=== PATIENT | female | born 1980 | race American Indian/Alaskan Native ===

== ENCOUNTER 2019-10-20 19:16 | Inpatient (IN) | payer SELFPAY ==
[~2019-10-20] VITALS: Ht 172.7 cm; Wt 107.1 kg
[2019-10-20] MEDS ORDERED: PANTOPRAZOLE 40 MG 10ML VIAL IV STA (19:34)
[2019-10-20] MEDS ORDERED: ONDANSETRON HCL INJ 2MG/ML 2ML 2 MG/ML VIAL IV STA (19:41)
[2019-10-20] MEDS ORDERED: MORPHINE SULFATE 2 MG/ML SYR 1ML IV STA (19:41)
[2019-10-20] MEDS ORDERED: ASPIRIN 81 MG CHEW TAB PO ONE (19:45)
[2019-10-20] MEDS ORDERED: DICYCLOMINE HCL 20 MG/2 ML VIAL IM ONE (19:45)
[2019-10-20 19:59] LABS: CLARITY,URINE CLEAR (CLEAR); COLOR,URINE YELLOW (YELLOW)
[2019-10-20 20:00] LABS: BILIRUBIN,URINE NEGATIVE (NEGATIVE); KETONES,URINE NEGATIVE (NEGATIVE); LEUKOCYTE ESTERASE ,URINE NEGATIVE (NEGATIVE); NITRITE,URINE NEGATIVE (NEGATIVE); PROTEIN,URINE DIPSTICK NEGATIVE (NEGATIVE); URINE UROBILINOGEN 1 mg/dL (0.2 - 1)
--- NOTE | 2019-10-20 20:05 | Diagnostic Imaging Report ---
EXAMINATION: CHEST SINGLE (PORTABLE) INDICATION: Shortness of breath. COMPARISON: None FINDINGS: TUBES and LINES: None. LUNGS: Lungs are well inflated. There are bibasilar atelectasis. There is no evidence of pneumonia or pulmonary edema. PLEURA: No pleural effusion or pneumothorax. HEART AND MEDIASTINUM: Cardiac size is mildly enlarged. BONES AND SOFT TISSUES: No acute osseous lesion. Soft tissues are unremarkable. UPPER ABDOMEN: No free air under the diaphragm. IMPRESSION: No acute thoracic abnormality. Signed by: Dr. Gatito Brennan M.D. on 10/20/2019 8:03 PM
[2019-10-20 20:07] LABS: BASOPHILS # (AUTO) 0.1 (0.0-0.1); BASOPHILS % 0.5 % (0.0-1.0); EOSINOPHILS # (AUTO) 0.1 (0.0-0.4); EOSINOPHILS % 1.1 % (0.0-6.0); HEMATOCRIT 41.4 % (34.2-44.1); LYMPHOCYTES # (AUTO) 3.5 (1.0-3.2); LYMPHOCYTES % 36.2 % (18.0-39.1); MEAN CORPUSCULAR HEMOGLOBIN 28.5 pg (28-32); MEAN CORPUSCULAR HGB CONC 33.8 g/dL (31-35); MEAN CORPUSCULAR VOLUME 84.1 fL (81-99); MONOCYTES # (AUTO) 0.7 (0.2-0.8); MONOCYTES % 7.6 % (4.4-11.3); NEUTROPHILS # (AUTO) 5.2 (2.1-6.9); NEUTROPHILS % 54.4 % (38.7-80.0); PLATELET COUNT 385 x10e3/uL (140-360); RED BLOOD COUNT 4.92 x10e6/uL (3.6-5.1); RED CELL DISTRIBUTION WIDTH 14.3 % (11.7-14.4)
[2019-10-20 20:11] LABS: AMORPHOUS SEDIMENT,URINE MODERATE (FEW); BACTERIA,URINE FEW /HPF; EPITHELIAL CELLS,URINE FEW /LPF; PREGNANCY TEST, URINE NEGATIVE (NEGATIVE); WBC,URINE (MAN) 0-5 /HPF (0-5)
[2019-10-20 20:51] LABS: ALANINE AMINOTRANSFERASE 9 IU/L (0-55); ALBUMIN 4.2 g/dL (3.5-5.0); ALBUMIN/GLOBULIN RATIO 1.2 (0.8-2.0); ALKALINE PHOSPHATASE 64 IU/L (40-150); ANION GAP 14.8 mmol/L (8-16); BLOOD UREA NITROGEN 14 mg/dL (7-26); BUN/CREATININE RATIO 19 (6-25); CARBON DIOXIDE 26 mmol/L (22-29); CHLORIDE 104 mmol/L (98-107); CREATINE KINASE 58 IU/L (29-168); CREATININE, SERUM 0.74 mg/dL (0.57-1.11); EST GLOMERULAR FILTRATION RATE > 60 ML/MIN (60-); GLUCOSE 97 mg/dL (74-118); POTASSIUM 3.8 mmol/L (3.5-5.1); SODIUM 141 mmol/L (136-145)
[2019-10-20 20:52] LABS: AMYLASE 38 U/L (25-125); LIPASE 20 U/L (8-78)
--- NOTE | 2019-10-20 20:56 | Diagnostic Imaging Report ---
EXAM: Right Upper Quadrant Ultrasound INDICATION: Right upper quadrant pain. COMPARISON: None. TECHNIQUE: Transverse and longitudinal images of the right upper abdomen were obtained. FINDINGS: Liver: Size: 15.3 cm in the right midclavicular line, normal Appearance: Normal echogenicity, smooth contour Mass: No focal masses Gallbladder: Stones/Sludge: Multiple shadowing calculi within the gallbladder. Wall: 0.4 cm, mildly thickened. Appearance: No wall thickening, pericholecystic fluid or hydrops. Sonographic Maria's Sign: Negative Bile Ducts: Intrahepatic Ducts: No dilatation Extrahepatic Ducts: Common bile duct measures 0.3 cm, no dilatation Pancreas: Visualized portions of the pancreatic head, neck and proximal body are normal. Kidneys: Length: Right 11.8 cm Echogenicity: Normal Collecting System: No hydronephrosis Stone: None Cyst/Mass: None Vessels: Aorta: Visualized portions are normal. Proximal aorta not visualized shadowing from overlying bowel gas. Inferior Vena Cava: Visualized portions are normal Main Portal Vein: 0.7 cm, normal size with hepatopetal flow. Free Fluid: No ascites or pleural effusion IMPRESSION: Cholelithiasis. Mild gallbladder wall thickening is a nonspecific finding, however, may reflect chronic calculus cholecystitis. Signed by: Dr. Gatito Brennan M.D. on 10/20/2019 8:53 PM
[2019-10-20] MEDS ORDERED: DIPHENHYDRAMINE HCL INJ 50 MG/ML VIAL IV ONE (21:00)
[2019-10-20] MEDS ORDERED: SODIUM CHLORIDE 0.9% 100 ML ONE (22:30)
[2019-10-20] MEDS ORDERED: IOPAMIDOL 370 MG/ML 200 ML INFUS..BTL INJ ONE (22:30)
--- NOTE | 2019-10-20 22:47 | Diagnostic Imaging Report ---
EXAM: CTA of the Thoracic Aorta WITH and WITHOUT Contrast INDICATION: Pain between shoulder blades, chest pain, back pain COMPARISON: None. TECHNIQUE: Multi-detector CT technology was employed. CTA axial imaging of the chest was performed after the administration of IV contrast. IV CONTRAST: 100 mL Isovue 370 ORAL CONTRAST: None COMPLICATIONS: None RADIATION DOSE: Total DLP: 1182 mGy*cm Estimated effective dose: (DLP x 0.015 x size factor) mSv CTDIvol has been reviewed. It is below the limits set by the Radiation Protocol Committee (RPC). For optimization of anatomic evaluation, multiplanar reconstruction, maximum intensity projections, and advanced 3-D off-line postprocessing were performed on a dedicated stand-alone workstation. FINDINGS: Potential study limitations: None. LINES/ TUBES: None. VASCULAR WITH ADVANCED 3-D OFF-LINE POSTPROCESSING: Aortic valve morphology is trileaflet and contains no calcifications. The thoracic aorta is normal in course, caliber, and contour. There is no acute aortic pathology, such as dissection, intramural hematoma, or contained rupture. Aortic plaques: None. The left vertebral artery arises directly from the aortic arch. All of the arch branch vessels appear widely patent in their proximal portions. LUNGS AND AIRWAYS: Lungs are clear. Airways are patent. PLEURA: The pleural spaces are clear.. HEART AND MEDIASTINUM: An 2.3 cm right thyroid lobe hypodense nodule. No mediastinal, hilar or axillary lymphadenopathy. The main pulmonary artery is normal in size. The cardiac chambers are normal in size. The coronary arteries have normal origins and courses. There are no distinct coronary calcifications identified, though this study was not optimized for coronary artery evaluation. There is no pericardial effusion. Upper ABDOMEN:Gallstones in the gallbladder lumen without CT evidence of cholecystitis. Punctate nonobstructive right renal calculus. A 2.9 cm benign left adrenal myelolipoma. BONES: Degenerative changes in the spine. IMPRESSION: Normal thoracic aorta. There is no acute aortic pathology. Cholelithiasis with mildly thickened gallbladder which can be seen with cholecystitis. An indeterminate 2.3 cm right thyroid lobe hypodense nodule. Recommend nonemergent thyroid ultrasound for further evaluation. Signed by: Cristofer Durant DO on 10/20/2019 10:44 PM
[2019-10-20] MEDS ORDERED: HYDROMORPHONE 1MG/1ML INJ IV STA (22:58)
[2019-10-20] MEDS ORDERED: HYDRALAZINE HCL 20 MG/ML VIAL IV PRN (23:30)
[2019-10-20] MEDS ORDERED: CEFEPIME 2 GM/NS 0.9% 100 ML 100 ML IV SCH (23:30)
[2019-10-20] MEDS ORDERED: PIPER-TAZ 3.375 GM / NS 50ML IV SCH (23:30)
[2019-10-20] MEDS ORDERED: DEXTROSE 50% SYRINGE 50 ML IV PRN (23:45)
[2019-10-21] VITALS (8 sets, daily range): BP systolic 118–160; BP diastolic 59–86
--- OUTSIDE RECORDS SUMMARY | 2019-10-21 | XMS REPORT ---
Author Author [facility] Address Unknown Phone Unavailable Care Team Providers Care System Support Analyst Name Role Phone Barron WILKINS Unavailable Unavailable Problems This patient has no known problems. Allergies, Adverse Reactions, Alerts This patient has no known allergies or adverse reactions. Medications This patient has no known medications. Results Test Description Test Time Test Comments Text Results Atomic Results Result Comments CTA CHEST 2019-10-20 22:35:00 [place] [address] Patient Name: VIKRAM SEBASTIAN MR #: [id number] : 1980 Age/Sex: 39/F Req #: [id number] Adm Physician: Ordered by: ELDON WILKINS MD Report #: [id number] Location: ER Room/Bed: Procedure: [id number] CT/CTA CHEST Exam Date: Exam Time: REPORT STATUS: Signed EXAM: CTA of the Thoracic Aorta WITH and WITHOUT Contrast INDICATION: Pain between shoulder blades, chest pain, back pain COMPARISON: None. TECHNIQUE: Multi-detector CT technology was employed. CTA axial imaging of the chest was performed after the administration of IV contrast. IV CONTRAST: 100 mL Isovue 370 ORAL CONTRAST: None COMPLICATIONS: None RADIATION DOSE: Total DLP: 1182 mGy*cm Estimated effective dose: (DLP x 0.015 x size factor) mSv CTDIvol has been reviewed. It is below the limits set by the Radiation Protocol Committee (RPC). For optimization of anatomic evaluation, multiplanar reconstruction, maximum intensity projections, and advanced 3-D off-line postprocessing were performed on a dedicated stand-alone workstation. FINDINGS: Potential study limitations: None. LINES/ TUBES: None. VASCULAR WITH ADVANCED 3-D OFF-LINE POSTPROCESSING: Aortic valve morphology is trileaflet and contains no calcifications. The thoracic aorta is normal in course, caliber, and contour. There is no acute aortic pathology, such as dissection, intramural hematoma, or contained rupture. Aortic plaques: None. The left vertebral artery arises directly from the aortic arch. All of the arch branch vessels appear widely patent in their proximal portions. LUNGS AND AIRWAYS: Lungs are clear. Airways are patent. PLEURA: The pleural spaces are clear.. HEART AND MEDIASTINUM: An 2.3 cm right thyroid lobe hypodense nodule. No mediastinal, hilar or axillary lymphadenopathy. The main pulmonary artery is normal in size. The cardiac chambers are normal in size. The coronary arteries have normal origins and courses. There are no distinct coronary calcifications identified, though this study was not optimized for coronary artery evaluation. There is no pericardial effusion. Upper ABDOMEN:Gallstones in the gallbladder lumen without CT evidence of cholecystitis. Punctate nonobstructive right renal calculus. A 2.9 cm benign left adrenal myelolipoma. BONES: Degenerative changes in the spine. IMPRESSION: Normal thoracic aorta. There is no acute aortic pathology. Cholelithiasis with mildly thickened gallbladder which can be seen with cholecystitis. An indeterminate 2.3 cm right thyroid lobe hypodense nodule. Recommend nonemergent thyroid ultrasound for further evaluation. Signed by: Cristofer Durant DO on 10/20/2019 10:44 PM Dictated By: CRISTOFER DURANT DO 43 Transcribed By: IMAN on 10/20/192243 COPY TO: ELDON WILKINS MD GALLBLADDER 2019-10-20 20:50:00 [place] [id number] Patient Name: VIKRAM SEBASTIAN MR #: [id number] : 1980 Age/Sex: 39/F Req #: [id number] Adm Physician: Ordered by: ELDON WILKINS MD Report #: [id number] Location: ER Room/Bed: Procedure: [id number] US/US GALLBLADDER Exam Date: 10/20/19 Exam Time: 2020 REPORT STATUS: Signed EXAM: Right Upper Quadrant Ultrasound INDICATION: Right upper quadrant pain. COMPARISON: None. TECHNIQUE: Transverse and longitudinal images of the right upper abdomen were obtained. FINDINGS: Liver: Size: 15.3 cm in the right midclavicular line, normal Appearance: Normal echogenicity, smooth contour Mass: No focal masses Gallbladder: Stones/Sludge: Multiple shadowing calculi within the gallbladder. Wall: 0.4 cm, mildly thickened. Appearance: No wall thickening, pericholecystic fluid or hydrops. Sonographic Maria's Sign: Negative Bile Ducts: Intrahepatic Ducts: No dilatation Extrahepatic Ducts: Common bile duct measures 0.3 cm, no dilatation Pancreas: Visualized portions of the pancreatic head, neck and proximal body are normal. Kidneys: Length: Right 11.8 cm Echogenicity: Normal Collecting System: No hydronephrosis Stone: None Cyst/Mass: None Vessels: Aorta: Visualized portions are normal. Proximal aorta not visualized shadowing from overlying bowel gas. Inferior Vena Cava: Visualized portions are normal Main Portal Vein: 0.7 cm, normal size with hepatopetal flow. Free Fluid: No ascites or pleural effusion IMPRESSION: Cholelithiasis. Mild gallbladder wall thickening is a nonspecific finding, however, may reflect chronic calculus cholecystitis. Signed by: Dr. Gatito Franco M.D. on 10/20/2019 8:53 PM Dictated By: CEDRIC FRANCO MD, MD 52 Transcribed By: IMAN on 10/20/192052 COPY TO: ELDON WILKINS MD CHEST SINGLE (PORTABLE) 2019-10-20 20:02:00 [place] [address] Patient Name: VIKRAM SEBASTIAN MR #: [id number] : 1980 Age/Sex: 39/F Req #: [id number] Adm Physician: Ordered by: ELDON WILKINS MD Report #: [id number] Location: ER Room/Bed: Procedure: [id number] DX/CHEST SINGLE (PORTABLE) Exam Date: 10/20/19 Exam Time: 1949 REPORT STATUS: Signed EXAMINATION: CHEST SINGLE (PORTABLE) INDICATION: Shortness of breath. COMPARISON: None FINDINGS: TUBES and LINES: None. LUNGS: Lungs are well inflated. There are bibasilar atelectasis. There is no evidence of pneumonia or pulmonary edema. PLEURA: No pleural effusion or pneumothorax. HEART AND MEDIASTINUM: Cardiac size is mildly enlarged. BONES AND SOFT TISSUES: No acute osseous lesion. Soft tissues are unremarkable. UPPER ABDOMEN: No free air under the diaphragm. IMPRESSION: No acute thoracic abnormality. Signed by: Dr. Gatito Franco M.D. on 10/20/2019 8:03 PM Dictated By: CEDRIC FRANCO MD, MD 02 Transcribed By: IMAN on 10/20/192002 COPY TO: ELDON WILKINS MD
--- NOTE | 2019-10-21 00:27 | NUR ---
RECEIVED FROM THE E.R. VIA STRETCHER. PATIENT IS ALERT AND ORIENTED. ASSISTED TO BED. AMBULATES WITH NO PROBLEM. ORIENTED TO ROOM. BED LOCKED, CALL LIGHT WITHIN REACHED.
[2019-10-21] MEDS: SODIUM CHLORIDE 0.9% 1000ML 1,000 ML IV SCH ×4 (00:47→21:34)
[2019-10-21] MEDS: METRONIDAZOLE 500MG/NS 100ML 100 ML IV SCH ×4 (00:47→11:41)
[2019-10-21] MEDS ORDERED: METFORMIN HCL500 MG PO (00:58)
--- NOTE | 2019-10-21 02:13 | NUR ---
PATIENT COMPLAIN OF SEVERE ABDOMINAL PAIN. PAIN MEDICATION IS DUE AT 0310 AM. PATIENT IS AWARE BUT STATES THAT SHE CANNOT WAIT FOR THAT TIME. PAGED DR. HIGHTOWER FOR ORDERS. WAITING FOR CALL BACK.
[2019-10-21] MEDS ORDERED: HYDROMORPHONE 1MG/1ML INJ IV STA (02:16)
[2019-10-21] MEDS: ONDANSETRON HCL INJ 2MG/ML 2ML 2 MG/ML VIAL IV PRN ×5 (02:35→21:34)
[2019-10-21] MEDS: HYDROMORPHONE 1MG/1ML INJ IV PRN ×4 (06:36→21:34)
--- NOTE | 2019-10-21 06:46 | NUR ---
Called Dr. Lauro Main for routine consult thru answering service. Awaiting for response.
[2019-10-21] MEDS ORDERED: INSULIN REGULAR, HUMAN 100 UNIT/1 ML 3ML VIAL SQ SCH (07:30)
[2019-10-21 08:45] LABS: BASOPHILS % 0.3 % (0.0-1.0); EOSINOPHILS % 0.1 % (0.0-6.0); HEMATOCRIT 39.4 % (34.2-44.1); HEMOGLOBIN 12.9 g/dL (12.0-16.0); LYMPHOCYTES # (AUTO) 2.2 (1.0-3.2); LYMPHOCYTES % 13.7 % (18.0-39.1); MEAN CORPUSCULAR HEMOGLOBIN 27.9 pg (28-32); MEAN CORPUSCULAR HGB CONC 32.7 g/dL (31-35); MEAN CORPUSCULAR VOLUME 85.1 fL (81-99); MONOCYTES # (AUTO) 1.2 (0.2-0.8); MONOCYTES % 7.7 % (4.4-11.3); NEUTROPHILS # (AUTO) 12.4 (2.1-6.9); NEUTROPHILS % 77.9 % (38.7-80.0); PLATELET COUNT 333 x10e3/uL (140-360); RED BLOOD COUNT 4.63 x10e6/uL (3.6-5.1); RED CELL DISTRIBUTION WIDTH 14.3 % (11.7-14.4)
[2019-10-21 09:04] LABS: ALANINE AMINOTRANSFERASE 11 IU/L (0-55); ALBUMIN 3.8 g/dL (3.5-5.0); ALBUMIN/GLOBULIN RATIO 1.2 (0.8-2.0); ALKALINE PHOSPHATASE 51 IU/L (40-150); ANION GAP 12.2 mmol/L (8-16); BLOOD UREA NITROGEN 9 mg/dL (7-26); BUN/CREATININE RATIO 13 (6-25); CARBON DIOXIDE 23 mmol/L (22-29); CHLORIDE 106 mmol/L (98-107); CREATININE, SERUM 0.71 mg/dL (0.57-1.11); EST GLOMERULAR FILTRATION RATE > 60 ML/MIN (60-); GLUCOSE 118 mg/dL (74-118); POTASSIUM 4.2 mmol/L (3.5-5.1); SODIUM 137 mmol/L (136-145)
[2019-10-21] MEDS: CEFEPIME 2 GM/NS 0.9% 100 ML 100 ML IV SCH ×2 (10:36→17:53)
--- NOTE | 2019-10-21 12:34 | NUR ---
pt signed consent for procedure.
[2019-10-21 12:37] LABS: AMYLASE 40 U/L (25-125); LIPASE 49 U/L (8-78)
[2019-10-21] MEDS ORDERED: BUPIVACAINE 0.5%/EPI 30 ML SDV INJ ONE (13:25)
[2019-10-21] MEDS ORDERED: HYDROCODONE/APAP 7.5MG-325MG 1 EA TAB PO PRN (15:15)
[2019-10-21] MEDS ORDERED: ONDANSETRON HCL INJ 2MG/ML 2ML 2 MG/ML VIAL ONE ×2 (15:43→19:00)
[2019-10-21] MEDS ORDERED: METOCLOPRAMIDE HCL 10 MG/2ML VIAL ONE (15:43)
[2019-10-21] MEDS ORDERED: HYDRALAZINE HCL 20 MG/ML VIAL ONE (15:56)
[2019-10-21] MEDS ORDERED: ACETAMINOPHEN 1000 MG/100 ML IV PRN (16:00)
--- NOTE | 2019-10-21 16:50 | NUR ---
pt return to unit resp even and unlabored, no distress noted.
[2019-10-21] MEDS: PANTOPRAZOLE 40 MG 10ML VIAL IV SCH (17:13)
--- NOTE | 2019-10-21 17:20 | NUR ---
pt ambulated in gan at this time no distress noted, pt tolerated noted.
[2019-10-21] MEDS: INSULIN REGULAR, HUMAN 100 UNIT/1 ML 3ML VIAL SQ SCH (17:54)
[2019-10-21] MEDS ORDERED: MIDAZOLAM HCL 2 MG/2 ML VIAL ONE (18:00)
[2019-10-21] MEDS ORDERED: FENTANYL CITRATE/PF 100MCG/2 ML INJ ONE (18:00)
[2019-10-21] MEDS ORDERED: DEXAMETHASONE SOD PHOS INJ 4 MG/ML VIAL ONE (19:00)
[2019-10-21] MEDS ORDERED: SEVOFLURANE INHAL SOLN 250 ML PEN BTL ONE (19:00)
[2019-10-21] MEDS ORDERED: ACETAMINOPHEN 1000 MG/100 ML IV ONE (19:00)
[2019-10-21] MEDS ORDERED: PROPOFOL IV EMULSION 10 MG/ML 20 ML VIAL ONE (19:00)
[2019-10-21] MEDS ORDERED: ROCURONIUM BROMIDE 10 MG/ML 5ML VIAL ONE (19:00)
[2019-10-21] MEDS ORDERED: GLYCOPYRROLATE INJ 0.2 MG/ML VIAL ONE (19:00)
[2019-10-21] MEDS ORDERED: LIDOCAINE HCL 2% LOCAL INJ 5 ML SDV VIAL INJ ONE (19:00)
[2019-10-21] MEDS ORDERED: NEOSTIGMINE 1 MG/ML 10ML VIAL ONE (19:00)
--- NOTE | 2019-10-21 19:24 | NUR ---
report given to oncoming nurse walking rounds complete.
[2019-10-22] VITALS (8 sets, daily range): BP systolic 110–158; BP diastolic 60–75
[2019-10-22] MEDS: SODIUM CHLORIDE 0.9% 1000ML 1,000 ML IV SCH ×3 (01:02→11:02)
[2019-10-22] MEDS: HYDROMORPHONE 1MG/1ML INJ IV PRN ×2 (01:35→05:55)
[2019-10-22] MEDS: ONDANSETRON HCL INJ 2MG/ML 2ML 2 MG/ML VIAL IV PRN ×2 (01:35→05:55)
[2019-10-22] MEDS: CEFEPIME 2 GM/NS 0.9% 100 ML 100 ML IV SCH ×3 (01:40→18:12)
[2019-10-22 05:23] LABS: BASOPHILS % 0.2 % (0.0-1.0); EOSINOPHILS % 0.2 % (0.0-6.0); HEMATOCRIT 35.5 % (34.2-44.1); HEMOGLOBIN 11.6 g/dL (12.0-16.0); LYMPHOCYTES # (AUTO) 1.9 (1.0-3.2); LYMPHOCYTES % 19.6 % (18.0-39.1); MEAN CORPUSCULAR HEMOGLOBIN 28.2 pg (28-32); MEAN CORPUSCULAR HGB CONC 32.7 g/dL (31-35); MEAN CORPUSCULAR VOLUME 86.4 fL (81-99); MONOCYTES # (AUTO) 0.9 (0.2-0.8); MONOCYTES % 8.9 % (4.4-11.3); NEUTROPHILS % 70.8 % (38.7-80.0); PLATELET COUNT 300 x10e3/uL (140-360); RED BLOOD COUNT 4.11 x10e6/uL (3.6-5.1); RED CELL DISTRIBUTION WIDTH 14.5 % (11.7-14.4)
[2019-10-22 05:45] LABS: ALANINE AMINOTRANSFERASE 26 IU/L (0-55); ALBUMIN 3.1 g/dL (3.5-5.0); ALKALINE PHOSPHATASE 39 IU/L (40-150); ANION GAP 11.5 mmol/L (8-16); BLOOD UREA NITROGEN 12 mg/dL (7-26); BUN/CREATININE RATIO 16 (6-25); CALCIUM 8.4 mg/dL (8.4-10.2); CARBON DIOXIDE 24 mmol/L (22-29); CHLORIDE 107 mmol/L (98-107); CREATININE, SERUM 0.77 mg/dL (0.57-1.11); EST GLOMERULAR FILTRATION RATE > 60 ML/MIN (60-); GLUCOSE 119 mg/dL (74-118); POTASSIUM 4.5 mmol/L (3.5-5.1); SODIUM 138 mmol/L (136-145)
[2019-10-22] MEDS: INSULIN REGULAR, HUMAN 100 UNIT/1 ML 3ML VIAL SQ SCH ×5 (06:00→21:00)
--- NOTE | 2019-10-22 08:45 | NUR ---
MD SALAS INTO SEE PT, DISCUSSED
--- NOTE | 2019-10-22 10:52 | NUR ---
AMBULATING IN HALLWAY, STEADY GAIT
[2019-10-22] MEDS ORDERED: DEXTROSE 50% SYRINGE 50 ML IV PRN (15:30)
[2019-10-22] MEDS: PANTOPRAZOLE 40 MG 10ML VIAL IV SCH (17:43)
--- NOTE | 2019-10-22 17:43 | NUR ---
MD Lauro BRUNSON INTO SEE PT, DISCUSSED POC, PT NOW AMBULATING IN HALLWAY, STEADY GAIT
[2019-10-22] MEDS ORDERED: BISACODYL 10 MG SUPP PR ONE (20:00)
--- NOTE | 2019-10-22 20:25 | NUR ---
SPOKE TO DR. BALL AT THIS TIME REGARDING PATIENT C/O RT SHOULDER PAIN. NEW ORDERS RECEIVED FOR PRN IV TYLENOL AND PRN SIMETHICONE
[2019-10-22] MEDS ORDERED: SIMETHICONE 80 MG CHEW PO PRN (20:30)
[2019-10-22] MEDS ORDERED: ACETAMINOPHEN 1000 MG/100 ML IV PRN (20:30)
[2019-10-23] VITALS: BP 120/65
--- NOTE | 2019-10-23 00:56 | Discharge Summary ---
HOSPITAL COURSE: Ms. Christine is a 39-year-old female with history of diabetes and hypertension, came to the emergency room complaining of epigastric pain and nausea. She was found to have cholelithiasis and cholecystitis. She underwent laparoscopic cholecystectomy yesterday and plan is to discharge her home today if she is stable, if she can walk around and tolerate feedings, and if it is okay with surgeon. PHYSICAL EXAMINATION: GENERAL: She is awake and alert. VITAL SIGNS: Temperature is 97.9, blood pressure 110/60. HEART: Regular rate. LUNGS: Clear to auscultation. ABDOMEN: Distended and soft. LABORATORY DATA: On the blood work, white count is 9.84, hemoglobin 11.6, hematocrit 35.5. Potassium is 4.5, creatinine is 0.77, glucose is 119. DISCHARGE DIAGNOSES: 1. Abdominal pain and nausea, secondary to cholelithiasis and cholecystitis, status post laparoscopic cholecystectomy. 2. Diabetes type 2. 3. Hypertension. PLAN: The plan at the present time is to if the patient can move around and she can tolerate feedings and if it is okay with surgeon, she is going to be discharged home and follow up as an outpatient. Continue her home medications. Continue ADA diet, 1800 calories. She needs follow up with her PCP in one week. She is to call me or come back to the emergency room if any recurrent problem. All this was discussed with the patient. All questions were answered to satisfaction. Please see home medication reconciliation list. MD DAGO Tsai/MERARI /[id number]
[2019-10-23] MEDS: CEFEPIME 2 GM/NS 0.9% 100 ML 100 ML IV SCH ×2 (02:00→10:00)
[2019-10-23 04:00] VITALS: BP_SYST 120; BP_SYST 138; BP_DIAS 65; BP_DIAS 70
[2019-10-23] MEDS: SODIUM CHLORIDE 0.9% 1000ML 1,000 ML IV SCH (06:49)
[2019-10-23] MEDS: INSULIN REGULAR, HUMAN 100 UNIT/1 ML 3ML VIAL SQ SCH ×2 (07:30→11:30)
[2019-10-23] MEDS ORDERED: BISACODYL 10 MG SUPP PR ONE (08:00)
[2019-10-23 08:19] VITALS: BP 117/66
--- NOTE | 2019-10-23 10:13 | Discharge Summary ---
ADMIT DIAGNOSES: 1. Cholelithiasis. 2. Hypertensive heart disease. 3. Type 2 diabetes. 4. Obesity, BMI 36. DISCHARGE DIAGNOSES: 1. Status post laparoscopic cholecystectomy because of acute cholecystitis. 2. Hypertensive heart disease. 3. Type 2 diagnosis. 4. Obesity, BMI 36. HOSPITAL COURSE: This is a 39-year-old woman, who was initially admitted to [facility] with diagnosis of cholelithiasis with likely acute cholecystitis. The patient had imaging studies performed during hospitalization revealed findings consistent with acute cholecystitis. Specifically, the patient underwent an abdominal ultrasound, which revealed mild gallbladder wall thickening that the radiologist thought could represent chronic calculous cholecystitis. The patient subsequently underwent CT angiogram of the chest and thorax that was unremarkable, but it did reveal cholelithiasis with mildly thickened gallbladder. During the hospitalization, the patient was seen by Dr. Zion Main, General Surgery, who performed successful laparoscopic cholecystectomy. The patient's condition on discharge is stable. She was tolerating a full liquid diet on discharge. DISCHARGE MEDICATIONS: 1. Levofloxacin 500 mg daily for 7 days. 2. Tylenol No.3 one pill every 4 hours p.r.n. pain, 20 pills prescribed, no refills. The patient was told to hold metformin until further notice. FOLLOWUP INSTRUCTIONS: The patient was instructed to follow up with Dr. Zion Main on October. The patient will follow up with the primary care physician within two weeks. MD JOHANN De Souza/MERARI /[id number] cc: Zion Main MD
[2019-10-23 10:45] VITALS: BP 117/66
[2019-10-23] MEDS ORDERED: LEVAQUIN500 MG PO (10:51)
[2019-10-23] MEDS ORDERED: TYLENOL WITH C1 EACH PO (10:51)
--- NOTE | 2019-10-23 11:28 | NUR ---
DISCHARGE INSTRUCTIONS REVIEWED WITH PT, VERBALIZED UNDERSTANDING, AWAITING RIDE
--- NOTE | 2019-10-23 11:52 | NUR ---
PT AMBULATED OFF UNIT FOR DISCHARGE, FAMILY AT SIDE
--- NOTE | 2019-11-16 18:44 | Consultation ---
DATE OF CONSULTATION: 10/20/2019 Surgical Consultation REASON FOR CONSULTATION: Cholecystitis. HISTORY OF PRESENT ILLNESS: This 39-year-old female was admitted to the hospital after presenting to the emergency room with acute onset of right upper quadrant abdominal pain, radiating through to the back associated with nausea and she states that she has had similar episodes in the past, but not so bad. There is no history of jaundice or melena. PAST MEDICAL HISTORY: Remarkable for diabetes, hypertension, and appendectomy. MEDICATIONS: Please refer to MAR. ALLERGIES: NONE. REVIEW OF SYSTEMS: Otherwise unremarkable. PHYSICAL EXAMINATION: GENERAL: At the time that we saw the patient revealed a female, lying in bed, complaining of abdominal pain. VITAL SIGNS: She was afebrile. Vital signs were stable. HEAD, EYES, EARS, NOSE, AND THROAT: Showed no acute inflammation. No icterus. NECK: No nodes, masses, or bruits. LUNGS: Clear to auscultation. HEART: Regular rate and rhythm. ABDOMEN: Showed some right upper quadrant tenderness with guarding. There was no rebound present. There were no palpable masses. EXTREMITIES: Good pulses bilaterally. ASSESSMENT: Acute cholecystitis and cholelithiasis, diabetes and hypertension. PLAN: Will be IV hydration, antibiotics, and laparoscopic cholecystectomy. Thank you very much for asking me to see this patient. MD JACOB Gerber/MERARI /[id number]
--- NOTE | 2019-11-16 18:49 | Operative Report ---
DATE OF PROCEDURE: 10/21/2019 SURGEON: Zion Main MD PREOPERATIVE DIAGNOSIS: Acute cholecystitis and cholelithiasis. POSTOPERATIVE DIAGNOSIS: Acute cholecystitis and cholelithiasis. OPERATION PERFORMED: Laparoscopic cholecystectomy. TUTORING CLINICIAN: KELLI Maloney. ANESTHESIA: General. COMPLICATIONS: None. ESTIMATED BLOOD LOSS: Minimal. DESCRIPTION OF PROCEDURE: With the patient lying in bed in the supine position under good general endotracheal anesthesia, the abdomen was prepped with Betadine solution and draped in the usual manner. A Veress needle was introduced into the umbilicus and pneumoperitoneum was established without any difficulty. An 11 mm trocar was placed into the umbilicus and a 10 mm video laparoscope was placed into the intraabdominal cavity. Under direct vision, three 5 mm trocars were placed in the right subcostal region. Video laparoscopy at this point revealed an acutely inflamed, edematous, distend gallbladder that contained some stones. The rest of the abdominal exploration was otherwise within normal limits. All the adhesions of the gallbladder were then slowly and carefully taken down. The peritoneum overlying the neck of the gallbladder was then opened and the cystic duct was identified. The cystic duct was then followed to its junction with the common duct. The cystic duct was then circumferentially dissected away from the common duct, doubly clipped and divided. The cystic artery was similarly doubly clipped and divided. The gallbladder was then slowly and carefully taken off the liver bed using the cautery scissors and perfect hemostasis was ascertained. The gallbladder was then removed through the umbilical port. Video laparoscopy was then again carried out. The whole area was inspected. Hemostasis was ascertained. All the excess fluid was aspirated. The pneumoperitoneum was evacuated and all the trocars were removed under direct vision. The midline fascia at the umbilicus was then closed with a [id number] of 0 Vicryl. All layers were infiltrated on the way out with solution of 0.25% Marcaine. Subcutaneous tissue was approximated with 3-0 Vicryl and the skin was closed with subcuticular 5-0 Vicryl. Benzoin Steri-Strips and Band-Aids were applied. The sponge, lap, and needle count was correct. The patient tolerated the procedure well and returned to the recovery room in stable condition. MD JACOB Gerber/MERARI /[id number]
== END 2019-10-23 11:52 | disposition home or self-care (01) | DRG 419 ==
LOC: ER 19:16 → ERHOLD 23:58 → MED/SURG 10-21 00:31
PROVIDERS: ADMIT Internal Medicine; ATTEND Internal Medicine
PROC: 0FT44ZZ Resection of Gallbladder, Percutaneous Endoscopic Approach (ICD-10-PCS; principal; 2019-10-21 13:00)
DX: K80.12 Calculus of gallbladder with acute and chronic cholecystitis without obstruction (principal); I11.9 Hypertensive heart disease without heart failure; E11.9 Type 2 diabetes mellitus without complications; F17.210 Nicotine dependence, cigarettes, uncomplicated; E66.9 Obesity, unspecified; Z68.36 Body mass index [BMI] 36.0-36.9, adult; Z83.3 Family history of diabetes mellitus; Z88.0 Allergy status to penicillin; Z82.49 Family history of ischemic heart disease and other diseases of the circulatory system; Z87.442 Personal history of urinary calculi; K82.8 Other specified diseases of gallbladder
CPT/HCPCS: 36415; 71045; 71275; 76705; 80053; 81001; 81025; 82150; 82550; 82553; 82948; 83690; 84484; 85025; 88304; 93005; 99284; C1766; J0360; J0500; J1100; J1170; J1200; J2001; J2250; J2270; J2405; J2710; J2765; J3010; J7030; J7050; Q9967